=== PATIENT | female | born 1965 | race Caucasian/White ===

== ENCOUNTER 2022-10-05 09:43 | Day surgery (SDC) | payer BC ==
[2022-10-04 11:33] VITALS: BMI 30.9
[~2022-10-05 09:43] MED LIST: Bupivacaine PF 0.5% 30 ML VIAL ONE; CEFAZOLIN 1 GM VIAL ONE
[2022-10-05] MEDS ORDERED: Fentanyl 100 MCG/2 ML VIAL ONE (11:16)
[2022-10-05] MEDS ORDERED: Midazolam HCl 2 mg/2 ml Vial ONE (11:16)
[2022-10-05] MEDS ORDERED: PROPOFOL 20 ML ONE (11:16)
[2022-10-05] MEDS ORDERED: EPINEPHrine 1 MG/ML AMP ONE (11:58)
[2022-10-05] MEDS ORDERED: Acetaminophen 325 MG TAB PO PRN (12:12)
== END 2022-10-05 12:51 | disposition home or self-care (01) ==
LOC: CSHSDC 09:43
PROVIDERS: ATTEND Surgery
PROC: 0JH60WZ Insertion of Totally Implantable Vascular Access Device into Chest Subcutaneous Tissue and Fascia, Open Approach (ICD-10-PCS; principal; 2022-10-05)
DX: C11.9 Malignant neoplasm of nasopharynx, unspecified (principal); I10 Essential (primary) hypertension; E78.5 Hyperlipidemia, unspecified; Z87.891 Personal history of nicotine dependence; Z79.899 Other long term (current) drug therapy; Z79.82 Long term (current) use of aspirin
CPT/HCPCS: 71045; C1788; J0171; J0690; J1642; J2250; J2704; J3010; S0020